=== PATIENT | female | born 1940 | race Caucasian/White ===

== ENCOUNTER 2019-09-12 00:24 | Outpatient (CLI) | payer BC, SELFPAY ==
[2019-09-12 16:46] LABS: SARS-CoV-2 RNA PCR Negative
== END 2019-09-12 00:25 | disposition home or self-care (01) ==
LOC: ANHCOVIDDT 00:24
PROVIDERS: Visit Provider Internal Medicine Gastroenterology
DX: Z01.818 Encounter for other preprocedural examination (principal); Z11.59 Encounter for screening for other viral diseases; Z86.010 Personal history of colon polyps
CPT/HCPCS: 87635; C9803; U0003

== ENCOUNTER 2019-09-15 01:13 | Day surgery (SDC) | payer BC, SELFPAY ==
[2019-09-11 10:26] VITALS: BMI 37.8
[2019-09-15 07:03] VITALS: BP 149/71; PULSE 90; RESP 14; TEMP 36.1; O2SAT 100
--- NOTE | 2019-09-15 07:17 | PM.HPGS ---
History of Present Illness History of Present Illness Consent: Risks, benefits, and alternatives have been discussed and questions answered. Patient agrees to proceed with procedure. Chief complaint: Personal Hx Colon Polyps Narrative: Neeru Davis is a 79 year old female with a history of colon polyps returns for screening colonoscopy Meds Home Medications and Allergies Home Medications Medication Instructions Recorded Confirmed Type allopurinol 300 mg PO DAILY 09/11/19 09/11/19 History amlodipine 2.5 mg PO DAILY 09/11/19 09/11/19 History aspirin 81 mg PO DAILY 09/11/19 09/11/19 History calcium carbonate [Calcium 600] 1,000 mg PO DAILY 09/11/19 09/11/19 History celecoxib 200 mg PO BID PRN 09/11/19 09/11/19 History chlordiazepoxide HCl 10 mg PO Q12H PRN 09/11/19 09/11/19 History diclofenac sodium 1 % TOPICAL DAILY PRN 09/11/19 09/11/19 History glucosamine-chondroitin [Osteo 1 tablet PO DAILY 09/11/19 09/11/19 History Bi-Flex] lisinopril 20 mg PO BID 09/11/19 09/11/19 History dhgtvjel-yej-pmer-FA-lutein 1 tablet PO DAILY 09/11/19 09/11/19 History [Centrum Silver Women] pantoprazole 40 mg PO QAM 09/11/19 09/11/19 History sitagliptin-metformin [Janumet] 1 tablet PO BID 09/11/19 09/11/19 History vitamin E 400 unit PO DAILY 09/11/19 09/11/19 History Allergies Allergy/AdvReac Type Severity Reaction Status Date / Time Sulfa (Sulfonamide Allergy Intermediate FEVER, Verified 09/11/19 10:04 Antibiotics) CHILLS Vital Signs Vital Signs - 24 hr 09/15/19 07:03 Temperature 36.1 C L Pulse Rate 90 Respiratory Rate 14 Blood Pressure 149/71 H Pulse Oximetry 100 Exam Resp: Auscultation: clear to auscultation bilaterally Cardio: Rate: regular rate Rhythm: regular rhythm GI: GI Palp: Yes Soft to palpation and No Tenderness to palpation present (GI) Assessment and Plan Assessment and plan (1) Personal history of colonic polyps: Code(s): Z86.010 - Personal history of colonic polyps Status: Acute Assessment and Plan: Colonoscopy with possible biopsy or polypectomy or cautery or injection of substances.
[2019-09-15] MEDS: LACTATED RINGERS 1,000 ML 150 ML IV CONT (07:22)
[2019-09-15 07:24] LABS: Glucose Point of Care 160 (65-105)
--- NOTE | 2019-09-15 07:46 | WPDANESEPPF ---
Anes - Initial Pre Proc Eval Procedure: Operation Date: 09/15/19 08:00 Proposed Procedures p Screening Colonoscopy - Saúl Silveira MD Date/Time: 09/15/19 07:46 Surgeon: Saúl Silveira MD Pre Op Diagnosis: Personal Hx Colon Polyps Patient Data Age: 79 Gender: F Height: 5 ft Weight: 88.9 kg Last Vital Signs Temp 36.1 C L 09/15/19 07:03 Pulse 90 09/15/19 07:03 Resp 14 09/15/19 07:03 BP 149/71 H 09/15/19 07:03 Pulse Ox 100 09/15/19 07:03 Allergies Allergy/AdvReac Type Severity Reaction Status Date / Time Sulfa (Sulfonamide Allergy Intermediate FEVER, Verified 09/11/19 10:04 Antibiotics) CHILLS Home Medications Medication Instructions Recorded Confirmed Type allopurinol 300 mg PO DAILY 09/11/19 09/11/19 History amlodipine 2.5 mg PO DAILY 09/11/19 09/11/19 History aspirin 81 mg PO DAILY 09/11/19 09/11/19 History calcium carbonate [Calcium 600] 1,000 mg PO DAILY 09/11/19 09/11/19 History celecoxib 200 mg PO BID PRN 09/11/19 09/11/19 History chlordiazepoxide HCl 10 mg PO Q12H PRN 09/11/19 09/11/19 History diclofenac sodium 1 % TOPICAL DAILY PRN 09/11/19 09/11/19 History glucosamine-chondroitin [Osteo 1 tablet PO DAILY 09/11/19 09/11/19 History Bi-Flex] lisinopril 20 mg PO BID 09/11/19 09/11/19 History kdcnupcw-qpq-sypz-FA-lutein 1 tablet PO DAILY 09/11/19 09/11/19 History [Centrum Silver Women] pantoprazole 40 mg PO QAM 09/11/19 09/11/19 History sitagliptin-metformin [Janumet] 1 tablet PO BID 09/11/19 09/11/19 History vitamin E 400 unit PO DAILY 09/11/19 09/11/19 History Laboratory Tests 09/15/19 07:22 POC Capillary Glucose 160 mg/dl H mg/dl (65-105) Patient hx anesthesia problems: none Family hx anesthesia problems: none PMFSH Past Medical History Medical History (Updated 09/15/19 @ 07:47 by Fly Dey MD) Diabetes Gout HTN (hypertension) Obesity Anes - Eval Final PreProcedure Day of Procedure 09/15/19 07:46 Patient weight: obese Heart: regular rate and rhythm Lungs: clear to auscultation Airway: Mallampati scale class II Neurological: alert and oriented Last oral intake: >/= 8 hours ASA classification: III Emergent: no Anesthetic plan: proceed Anesthesia type and monitoring: general GIVS and standard monitoring Informed Consent: The patient's anesthetic plan and its attendant risks and benefits were discussed with the patient/family/POA. Questions were solicited and answers provided to the satisfaction of the patient/family/POA.
[2019-09-15 08:10] VITALS: BP 138/79; PULSE 89; RESP 22; O2SAT 98
[2019-09-15 08:20] VITALS: BP 154/70; PULSE 86; RESP 24; O2SAT 98
[2019-09-15 08:30] VITALS: BP 151/71; PULSE 81; RESP 18; O2SAT 98
== END 2019-09-15 08:44 | disposition home or self-care (01) ==
PROVIDERS: Visit Provider Internal Medicine Gastroenterology
PROC: 0DJD8ZZ Inspection of Lower Intestinal Tract, Via Natural or Artificial Opening Endoscopic (ICD-10-PCS; CPT 45378; principal; 2019-09-15 08:00)
DX: Z12.11 Encounter for screening for malignant neoplasm of colon (principal); D12.2 Benign neoplasm of ascending colon; I10 Essential (primary) hypertension; E11.9 Type 2 diabetes mellitus without complications; M10.9 Gout, unspecified; Z79.82 Long term (current) use of aspirin; Z79.84 Long term (current) use of oral hypoglycemic drugs; E66.9 Obesity, unspecified; Z68.38 Body mass index [BMI] 38.0-38.9, adult
CPT/HCPCS: 45385; 88305; J2001; J2704; J7120

== ENCOUNTER 2021-02-20 10:55 | Emergency (ER) | payer BC, SELFPAY ==
--- NOTE | ~2021-02-20 | XR_ITS ---
EXAMINATION: XR foot LT min 3V DATE: 02/20/2021 11:14 INDICATION: Pain and erythema at the proximal left fifth metatarsal TECHNIQUE: Dorsoplantar, two oblique and lateral views of the left foot were obtained. COMPARISON: 12/07/2013 FINDINGS: Bone alignment is normal. No fracture. Mild polyarticular osteoarthritis at multiple joints throughou t the left foot. Small juxta articular erosions with overhanging edges and thin sclerotic margins at the medial head of the first metatarsal with typical location and appearance for gout. Achilles and p lantar calcaneal spurs with additional enthesopathic ossification at the distal Achilles tendon. IMPRESSION: 1. No acute osseous abnormality. 2. Small erosions at the medial head of the first metatarsal with typical appearance and location for gout. 3. Mild polyarticular osteoarthritis throughout the left foot. 4. Chronic Achilles and plantar calcaneal enthesopathy. Reviewed, dictated and finalized at location A. IMPRESSION: 1. No acute osseous abnormality. 2. Small erosions at the medial head of the first metatarsal with typical appea margaret and location for gout. 3. Mild polyarticular osteoarthritis throughout the left foot. 4. Chronic Achilles and plantar calcaneal enthesopathy.
[2021-02-20 11:00] VITALS: BP 153/74; PULSE 85; RESP 16; TEMP 36.1; O2SAT 100
--- NOTE | 2021-02-20 11:10 | ED.EXTPRO ---
HPI - Extremity Problem General Chief complaint: Extremity Problem,Nontraumatic Stated complaint: lt foot pain Time Seen by Provider: 02/20/21 11:11 Source: patient, RN notes reviewed and old records reviewed Mode of arrival: ambulatory Limitations: no limitations History of Present Illness HPI Narrative: 80year old female who presents to express care with complaints of pain to the lateral aspect of her left foot with no known injury to area. Patient has palpable area of tenderness to mid lateral left foot with mild redness to area noted, no bruising noted. Patient does have minimal swelling to her left foot reports that she just returned from trip. Patient is using wheeled walker to aid with ambulation due to pain in left lateral foot which she rates as 6/10. Patient has history of arthritis and has Celebrex which she can take prn BID for pain but has not taken any of this medication or applied any topical Voltaren ointment to area. Related Data Home Medications Medication Instructions Recorded Confirmed Centrum Silver Women 1 tablet PO DAILY 09/11/19 09/11/19 Janumet 1 tablet PO BID 09/11/19 09/11/19 allopurinol 300 mg PO DAILY 09/11/19 09/11/19 amlodipine 2.5 mg PO DAILY 09/11/19 09/11/19 aspirin 81 mg PO DAILY 09/11/19 09/11/19 calcium carbonate [Calcium 600] 1,000 mg PO DAILY 09/11/19 09/11/19 celecoxib 200 mg PO BID PRN 09/11/19 09/11/19 chlordiazepoxide HCl 10 mg PO Q12H PRN 09/11/19 09/11/19 diclofenac sodium 1 % TOPICAL DAILY PRN 09/11/19 09/11/19 glucosamine-chondroitin [Osteo 1 tablet PO DAILY 09/11/19 09/11/19 Bi-Flex] lisinopril 20 mg PO BID 09/11/19 09/11/19 pantoprazole 40 mg PO QAM 09/11/19 09/11/19 vitamin E 400 unit PO DAILY 09/11/19 09/11/19 levothyroxine 02/20/21 omeprazole 02/20/21 Allergies Allergy/AdvReac Type Severity Reaction Status Date / Time Sulfa (Sulfonamide Allergy Intermediate FEVER, Verified 09/11/19 10:04 Antibiotics) CHILLS Review of Systems Review of Systems: CONSTITUTIONAL: Denies fever, chills, or sweats. EYES: Denies visual changes, redness, or discharge. ENT: Denies rhinorrhea, congestion, sore throat, or otalgia. CARDIOVASCULAR: Denies chest pain, palpitations, or edema. RESPIRATORY: Denies cough or dyspnea. GASTROINTESTINAL: Denies abdominal pain, nausea, vomiting, or diarrhea. GENITOURINARY: Denies dysuria or hematuria. SKIN: Denies rash or itching. MUSCULOSKELETAL: Denies back pain,positive for left lateral foot pain, or myalgia. NEUROLOGIC: Denies headache, numbness, or weakness. PSYCHIATRIC: positive for history of anxiety or depression. All systems reviewed & are unremarkable except as noted in HPI and below PMFSH Past Medical History Medical History (Updated 02/20/21 @ 11:57 by Sheila Landin NP) Anxiety Arthritis Diabetes GERD (gastroesophageal reflux disease) Gout HTN (hypertension) Hypothyroid Obesity Osteoporosis Surgical History Surgical History (Updated 02/20/21 @ 11:58 by Sheila Landin NP) H/O cataract removal with insertion of prosthetic lens bilateral History of cholecystectomy History of tonsillectomy Family History Family History (Updated 02/20/21 @ 11:58 by Sheila Landin NP) Sibling Arthritis Social History Social History (Updated 02/20/21 @ 12:09 by Sheila Landin NP) Smoking status: Never smoker Alcohol intake: former Alcohol use details: social Substance use: never Living arrangements: with friend(s) Occupation/Education: retired Gender identity (if verbalized by the patient): Female Comments At time of signature, agree with nursing past medical, surgical, social and family history. There is no relevant family history pertinent to the presenting complaint Exam Narrative: GENERAL: Well-appearing, well-nourished, and in no acute distress. HEAD: Normocephalic, atraumatic. EYES: PERRLA and EOMI. ENT: Nares clear, no rhinorrhea or epistaxis. Mucous membranes moist. NECK: Supple. no lym
== END 2021-02-20 11:47 | disposition home or self-care (01) ==
PROVIDERS: Emergency Provider Registered Nurse
DX: M79.672 Pain in left foot (principal); M19.072 Primary osteoarthritis, left ankle and foot; M19.90 Unspecified osteoarthritis, unspecified site; K21.9 Gastro-esophageal reflux disease without esophagitis; M10.9 Gout, unspecified; I10 Essential (primary) hypertension; E03.9 Hypothyroidism, unspecified; M81.0 Age-related osteoporosis without current pathological fracture; E66.9 Obesity, unspecified; E11.9 Type 2 diabetes mellitus without complications; Z79.82 Long term (current) use of aspirin
CPT/HCPCS: 73630; 99213; G0463